=== PATIENT | female | born 1930 | race Caucasian/White ===

== ENCOUNTER 2016-12-09 15:05 | Emergency (ER) | payer MEDICARE, OTHER ==
[~2016-12-09] VITALS: Ht 152.4 cm; Wt 60.8 kg
[~2016-12-09 15:05] MED LIST: ACET-868 PO; ALBU2.5V38 HHN; AMLO10TA2 PO; BENA40TA67 PO; CRAN425C PO; CYPR4TAB34 PO; DONE10TA4 PO; ENOX30DI5 SQ; GLIM4TAB PO; INSU100I19 SQ; MAG30ORA PO; MAGN400O6 PO; METF500T4 PO; MIRT15TA PO; NA P133E RC; PANT40TA2 PO; SIMV40TA2 PO; SULF1TAB47 PO
--- NOTE | 2016-12-09 15:30 | NUR ---
PT BIB EMS FROM [facility] C/O LACERATION ON FOREHEAD S/P FOUND ON FLOOR. NOTED STERI STRIPS ON FOREHEAD LAC WITH MINIMAL BLEEDING. SEEN BY DM FOR EVAL. VSS. SAFETY AND COMFORT MEASURES PROVIDED. WILL MONITOR.
--- NOTE | 2016-12-09 15:40 | NUR ---
IV ACCESS STARTED. BLOOD DRAWN FOR LABS, SENT.
--- NOTE | 2016-12-09 15:50 | NUR ---
PT TAKEN TO CT.
[2016-12-09 15:56] LABS: BASOPHILS % (AUTO) 0.4 % (0.0-2.0); EOSINOPHILS # (AUTO) 0.1 /CMM (0.0-0.7); EOSINOPHILS % (AUTO) 1.3 % (0.0-6.0); HEMATOCRIT 33 % (33-45); HEMOGLOBIN 10.4 g/dL (11.5-14.8); LYMPHOCYTES # (AUTO) 0.9 /CMM (0.8-4.8); LYMPHOCYTES % (AUTO) 9.5 % (20.0-44.0); MEAN CORPUSCULAR HEMOGLOBIN 26 PG (26.0-33.0); MEAN CORPUSCULAR HGB CONC 32 g/dl (31.0-36.0); MEAN CORPUSCULAR VOLUME 81 fL (82-100); MONOCYTES # (AUTO) 0.6 /CMM (0.1-1.30); NEUTROPHILS # (AUTO) 7.6 /CMM (1.8-8.9); NEUTROPHILS % (AUTO) 82.8 % (43.0-81.0); PLATELET COUNT (AUTO) 289 /CMM (150-450); RDW COEFFICIENT OF VARIATION 16.8 (11.5-15.0); RED BLOOD CELL COUNT(AUTO) 4.07 MIL/uL (4.0-5.2); WHITE BLOOD COUNT (AUTO) 9.2 K/uL (4.3-11.0)
[2016-12-09 16:00] LABS: CALCIUM, SERUM 8.6 mg/dL (8.5-10.1); CARBON DIOXIDE 23 mmol/L (21-32); CHLORIDE 104 mmol/L (98-107); CREATININE 1.3 mg/dL (0.6-1.3); GLUCOSE 187 mg/dL (74-106); POTASSIUM 4.7 mmol/L (3.5-5.1); SODIUM SERUM 138 mmol/L (136-145); UREA NITROGEN, BLOOD 30 mg/dL (7-18)
[2016-12-09 16:01] LABS: INR 1.05 (0.87-1.13); PROTHROMBIN TIME 11.3 SECS (9.5-12.7)
[2016-12-09 16:03] LABS: ALANINE AMINOTRANSFERASE 12 U/L (12-78); ALBUMIN 2.6 g/dL (3.4-5.0); ALKALINE PHOSPHATASE 89 U/L (46-116); ASPARTATE AMINOTRANSFERASE 10 U/L (15-37); BILIRUBIN,DIRECT 0.1 mg/dL (0.0-0.2); BILIRUBIN,TOTAL 0.2 mg/dL (0.2-1.0); TOTAL PROTEIN, SERUM 6.8 g/dL (6.4-8.2)
[2016-12-09 16:05] LABS: TROPONIN I < 0.017 ng/mL (0.00-0.056)
--- NOTE | 2016-12-09 16:10 | NUR ---
FC INITIATED. URINE SAMPLE OBTAINED, SENT.
[2016-12-09 16:20] LABS: APPEARANCE,URINE CLOUDY (CLEAR); BILIRUBIN,URINE NEGATIVE (NEGATIVE); BLOOD, URINE TRACE-INTA Ery/uL (NEGATIVE); COLOR,URINE YELLOW (YELLOW); KETONES,URINE NEGATIVE (NEGATIVE); LEUKOCYTE ESTERASE ,URINE 3+ (NEGATIVE); NITRITE, URINE POSITIVE (NEGATIVE); PROTEIN,URINE TRACE mg/dl (NEGATIVE); UGLUCOSE NEGATIVE (NEGATIVE); UROBILINOGEN,URINE 0.2 EU/dL (0.2)
[2016-12-09 16:26] LABS: BACTERIA,URINE Many /HPF (None Seen); RBC,URINE 0-2 /HPF (0-2); SQUAMOUS EPITHELIAL CELL,UR Few /HPF (None Seen); WBC,URINE 21-50 /HPF (0-3)
[2016-12-09] MEDS ORDERED: MEROPENEM 500 MG in IV NS 0.9% 50 ML IV ONE (17:00)
--- NOTE | 2016-12-09 17:15 | NUR ---
CALLED [facility] FOR TRANSPORT ETA OF 90 MINS WAS GIVEN.
--- NOTE | 2016-12-09 19:13 | NUR ---
REPORT GIVEN TO BASHIR CALHOUN FOR BENJI.
[2016-12-09 19:46] VITALS: BP 114/66
--- NOTE | 2016-12-09 19:48 | NUR ---
REPORT GIVEN TO EMT FOR TRANSPORT
== END 2016-12-09 19:47 | disposition home or self-care (01) ==
LOC: ER 15:07
DX: S01.81XA Laceration without foreign body of other part of head, initial encounter (principal); R55 Syncope and collapse; N39.0 Urinary tract infection, site not specified; E03.9 Hypothyroidism, unspecified; E11.9 Type 2 diabetes mellitus without complications; E78.5 Hyperlipidemia, unspecified; F03.90 Unspecified dementia, unspecified severity, without behavioral disturbance, psychotic disturbance, mood disturbance, and anxiety; F29 Unspecified psychosis not due to a substance or known physiological condition; I27.2 Other secondary pulmonary hypertension; I63.9 Cerebral infarction, unspecified; I70.0 Atherosclerosis of aorta; K21.9 Gastro-esophageal reflux disease without esophagitis; M85.80 Other specified disorders of bone density and structure, unspecified site; Z79.4 Long term (current) use of insulin; Z88.0 Allergy status to penicillin; Z99.81 Dependence on supplemental oxygen; W19.XXXA Unspecified fall, initial encounter; Y93.89 Activity, other specified; Y92.89 Other specified places as the place of occurrence of the external cause; Y99.8 Other external cause status
CPT/HCPCS: 36415; 70450-TC; 71010-TC; 72125-TC; 80048-TC; 80076-TC; 81000-TC; 82962-TC; 84484-TC; 85025-TC; 85730-TC; 87081-TC; 87086-TC; 87186-TC; A4216; A4606; A6403; J2185; Z7610